=== PATIENT | female | born 1985 | race Caucasian/White ===

== ENCOUNTER 2024-08-18 16:37 | Emergency (ER) | payer SELFPAY | END 2024-08-18 17:09 | disposition home or self-care (01) | LOC: EDBD 16:37 → MW.ED 16:37 | DX: T63.441A Toxic effect of venom of bees, accidental (unintentional), initial encounter (principal); Z91.030 Bee allergy status; Z91.040 Latex allergy status; Z88.5 Allergy status to narcotic agent; Z87.891 Personal history of nicotine dependence | CPT/HCPCS: 99282; 99284 ==